=== PATIENT | female | born 2000 | race Caucasian/White ===

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

== ENCOUNTER 2019-07-22 16:50 | Emergency (ER) | payer BC ==
[2019-07-22 18:40] VITALS: BP 117/67
--- NOTE | 2019-07-22 19:03 | UC ---
Complaint Female HPI - HPI Summary HPI Summary: 19-year-old female with a history of frequent urinary tract infection symptoms presents with UTI symptoms 1 day.Starting this afternoon pt has had burning on urination, urinary urgency or frequency, lower abdominal discomfort. Urinating or symptoms. Nothing her symptoms. No fevers or chills. No nausea or vomiting. Patient feels that she has a UTI as she has had numerous of them and went to a urologist in the past. She is going on a trip to [place] in a couple of days and anxious that her symptoms could worsen when she is there. - History Of Current Complaint Chief Complaint: UCGU Stated Complaint: URINARY Time Seen by Provider: 07/22/19 18:39 Hx Last Menstrual Period: 07/10/19 Onset/Duration: Sudden Onset Pain Intensity: 0 - Allergies/Home Medications Allergies/Adverse Reactions: Allergies Allergy/AdvReac Type Severity Reaction Status Date / Time amoxicillin Allergy Rash Verified 07/22/19 18:34 PMH/Surg Hx/FS Hx/Imm Hx Previously Healthy: Yes GI/ History: Kidney Stones, Other - frequent uti Neurological History: Seizures - Surgical History Surgical History: Yes Surgery Procedure, Year, and Place: cavinoma removed via brain surgery 2009. Appendectomy - Family History Known Family History: Positive: Respiratory Disease, Other - pos: kidney stones - grandfather, uncle. Negative: Hypertension - Social History Occupation: Employed Full-time Alcohol Use: Occasionally Alcohol Amount: "once a month" "socially" Substance Use Type: None Smoking Status (MU): Never Smoked Tobacco Have You Smoked in the Last Year: No - Immunization History Most Recent Influenza Vaccination: Fall 2016 Most Recent Pneumonia Vaccination: none Vaccination Up to Date: Yes Review of Systems All Other Systems Reviewed And Are Negative: Yes Genitourinary: Positive: Dysuria, Frequency, Urgency Physical Exam Triage Information Reviewed: Yes Appearance: Well-Appearing, No Pain Distress, Well-Nourished Vital Signs: Initial Vital Signs Temp 98 F 07/22/19 18:36 Pulse 81 07/22/19 18:36 Resp 14 07/22/19 18:36 BP 117/67 07/22/19 18:36 Pulse Ox 100 07/22/19 18:36 Vital Signs Reviewed: Yes Eye Exam: Normal ENT Exam: Normal Dental Exam: Normal Neck exam: Normal Neck: Positive: 1 Respiratory Exam: Normal Cardiovascular Exam: Normal Abdominal Exam: Normal Abdomen Description: Positive: Nontender, Soft. Negative: CVA Tenderness (R), CVA Tenderness (L), Distended, Guarding Musculoskeletal Exam: Normal Neurological Exam: Normal Psychological Exam: Normal Skin Exam: Normal Diagnostics - Laboratory Lab Results: neg u/a Complaint Female Dx - Course Course Of Treatment: Patient with history of frequent UTI and also going to [place] for work in a couple days. Ice it is likely does not have UTI. Advised to increase fluid intake, start Pyridium and if symptoms over the next few days worsen or culture is positive then to start antibiotics. Patient is aware and agreeable to plan as well as to side effects of medication. She will try to avoid antibiotics to avoid any antibiotic resistance being created in the future. - Differential Dx/Diagnosis Differential Diagnosis/HQI/PQRI: Renal Colic, Ureteral Stone, Urinary Tract Infection, Other - cystitis Provider Diagnosis: Dysuria Discharge ED - Sign-Out/Discharge Documenting (check all that apply): Patient Departure All imaging exams completed and their final reports reviewed: No Studies - Discharge Plan Condition: Good Disposition: HOME Prescriptions: Phenazopyridine 200 mg (NF) [Pyridium 200 MG tab *] 200 mg PO TID PRN #6 tab PRN Reason: Pain - Mild Sulfamethox/Trimethoprim DS* [Bactrim DS 800/160 TAB*] 1 tab PO BID #6 tab Patient Education Materials: Dysuria (ED) Referrals: Flores Cutler MD [Primary Care Provider] - 3 Days Additional Instructions: As we discussed today the urinalysis was negative. Please drink plenty of fluids. We will give you the pain medication Pyridium. At this time it is not advisable to start antibiotics. If your culture returns positive for your symptoms worsen then you can consider starting antibiotics. Based on her history of frequent urinary tract infections and her impending trip to [place] we will have antibiotics available for review encased your symptoms worsen. If any further concerns please seek medical attention. - Billing Disposition and Condition Condition: GOOD Disposition: Home
--- NOTE | 2019-07-25 07:04 | UC ---
- Progress Note Progress Note: urine final - no growth no change sil Course/Dx - Diagnoses Provider Diagnoses: Dysuria Discharge ED - Sign-Out/Discharge Documenting (check all that apply): Post-Discharge Follow Up All imaging exams completed and their final reports reviewed: No Studies - Discharge Plan Condition: Good Disposition: HOME Prescriptions: Phenazopyridine 200 mg (NF) [Pyridium 200 MG tab *] 200 mg PO TID PRN #6 tab PRN Reason: Pain - Mild Sulfamethox/Trimethoprim DS* [Bactrim DS 800/160 TAB*] 1 tab PO BID #6 tab Patient Education Materials: Dysuria (ED) Referrals: Flores Cutler MD [Primary Care Provider] - 3 Days Additional Instructions: As we discussed today the urinalysis was negative. Please drink plenty of fluids. We will give you the pain medication Pyridium. At this time it is not advisable to start antibiotics. If your culture returns positive for your symptoms worsen then you can consider starting antibiotics. Based on her history of frequent urinary tract infections and her impending trip to [place] we will have antibiotics available for review encased your symptoms worsen. If any further concerns please seek medical attention. - Billing Disposition and Condition Condition: GOOD Disposition: Home
== END 2019-07-22 19:17 | disposition home or self-care (01) ==
LOC: UCCORT 16:50
DX: R30.0 Dysuria (principal); R35.0 Frequency of micturition; Z88.0 Allergy status to penicillin; Z87.442 Personal history of urinary calculi; Z87.440 Personal history of urinary (tract) infections
CPT/HCPCS: 81003; 87086; 99212; G0463